=== PATIENT | female | born 1950 | race Caucasian/White ===

== ENCOUNTER → 2016-06-28 | Outpatient (CLI) | payer OTHER ==
[2016-06-28 13:40] VITALS: BP 138/90; PULSE 59; RESP 16; TEMP 97.5; BMI 35.6
--- NOTE | 2016-06-28 17:00 | P.HPBAR ---
Bariatric H&P - History & Physicial H&P Date: 06/28/16 History & Physicial: Visit/CC: Follow-Up EGD Patient initial contact: Initial weight: 104.326 kg Initial weight in pounds: 230.00 Height: 4 ft 11 in Initial BMI: 46.4 Last weight: Current weight: 80.059 kg Current weight in pounds: 176.00 Current BMI: 35.6 [place] body weight (based on NIH guidelines): 43.091 kg Excess body weight loss: 39.9% The patient is a 66 year-old F who presents for Bariatric Assessment. The patient ate a care yesterday. She has some feelings of dysphagia. 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, carpal tunnel release rt, eye surgery as a result of brain tumor Past Anesthesia/Blood Transfusion Reactions: No Reported Reaction, Motion Sickness Past Psychological History: Depression Additional Psychological History / Comment(s): takes cymbalta Smoking Status: Never smoker Past Alcohol Use History: Rare Past Drug Use History: None Reported - Past Family History Brother(s) Family Medical History: Diabetes Mellitus, Hypertension Father Family Medical History: AICD/Pacemaker Additional Family Medical History / Comment(s): from kidney cancer Mother Family Medical History: Hyperlipidemia, Hypertension Additional Family Medical History / Comment(s): macular degeneration, severe arthritis, hammer toe (severe feet issues), dimentia Surgical - Exam Vital Signs Temp Pulse Resp BP 97.5 F L 59 L 16 138/90 06/28/16 13:33 06/28/16 13:33 06/28/16 13:33 06/28/16 13:33 - General well developed, no distress - Eyes PERRL - ENT normal pinna - Neck no masses - Respiratory normal expansion - Cardiovascular Rhythm: regular - Abdomen Abdomen: soft, non tender Bariatric Assessment & Plan Plan: The patient had her Pete adjusted. 5 mL remove her LAP-BAND. She currently has 2.5 mL the band. She is able to water without difficulty. Bariatric Checklist Checklist: Plan: Checklist: EGD: 1. Hiatal hernia: 2. H. Pylori: HgbA1c: Vitamin D: Smoking: Never smoker Primary care physician referral: [place]que [place]) Psychiatry clearance: Cardiology clearance: Sleep study: Diet journal: VTE risk score: VTE risk level: Rehab needs at discharge:
== END | disposition home or self-care (01) ==
LOC: BARWHC3 12:52
PROVIDERS: ATTEND Surgery
DX: Z48.815 Encounter for surgical aftercare following surgery on the digestive system (principal); Z98.84 Bariatric surgery status; Z68.35 Body mass index [BMI] 35.0-35.9, adult; R13.10 Dysphagia, unspecified
CPT/HCPCS: 99211

== ENCOUNTER → 2016-08-16 | Outpatient (CLI) | payer OTHER ==
[2016-08-16 13:56] VITALS: BP 119/64; PULSE 65; RESP 14; TEMP 97.5; BMI 35.2
--- NOTE | 2016-08-16 14:14 | P.HPBAR ---
Bariatric H&P - History & Physicial H&P Date: 08/16/16 History & Physicial: Visit/CC: band fill Patient initial contact: Initial weight: 104.326 kg Initial weight in pounds: 230.00 Height: 4 ft 11 in Initial BMI: 46.4 Last weight: Current weight: 79.152 kg Current weight in pounds: 174.50 Current BMI: 35.2 [place] body weight (based on NIH guidelines): 43.091 kg Excess body weight loss: 41.1% The patient is a 66 year-old F who presents for Bariatric Assessment. Patient presents today for lab band follow up. She currently is hungry. She has gained some weight since her last visit. 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, carpal tunnel release rt, eye surgery as a result of brain tumor Past Anesthesia/Blood Transfusion Reactions: No Reported Reaction, Motion Sickness Past Psychological History: Depression Additional Psychological History / Comment(s): takes cymbalta Smoking Status: Never smoker Past Alcohol Use History: Rare Past Drug Use History: None Reported - Past Family History Brother(s) Family Medical History: Diabetes Mellitus, Hypertension Father Family Medical History: AICD/Pacemaker Additional Family Medical History / Comment(s): from kidney cancer Mother Family Medical History: Hyperlipidemia, Hypertension Additional Family Medical History / Comment(s): macular degeneration, severe arthritis, hammer toe (severe feet issues), dimentia Surgical - Exam Vital Signs Temp Pulse Resp BP 97.5 F L 65 14 119/64 08/16/16 13:49 08/16/16 13:49 08/16/16 13:49 08/16/16 13:49 - Abdomen Abdomen: soft, non tender Bariatric Assessment & Plan Plan: 2 mL was added to the patient LAP-BAND. She currently has 4.5 mL in the band. She was able to drink water without difficulty. She'll follow-up in one month Bariatric Checklist Checklist: Plan: Checklist: EGD: 1. Hiatal hernia: 2. H. Pylori: HgbA1c: Vitamin D: Smoking: Never smoker Primary care physician referral: [place]) Psychiatry clearance: Cardiology clearance: Sleep study: Diet journal: VTE risk score: VTE risk level: Rehab needs at discharge:
== END | disposition home or self-care (01) ==
LOC: BARWHC3 12:55
PROVIDERS: ATTEND Surgery
DX: Z48.815 Encounter for surgical aftercare following surgery on the digestive system (principal); Z98.84 Bariatric surgery status; Z68.35 Body mass index [BMI] 35.0-35.9, adult
CPT/HCPCS: 99212

== ENCOUNTER → 2017-03-07 | Outpatient (CLI) | payer OTHER ==
[2017-03-07 13:08] VITALS: BP 127/81; PULSE 82; TEMP 97.1; BMI 37.5
--- NOTE | 2017-03-07 14:00 | P.HPBAR ---
Bariatric H&P - History & Physicial H&P Date: 03/07/17 History & Physicial: Visit/CC: lap band fill Patient initial contact: Initial weight: 104.326 kg Initial weight in pounds: 230.00 Height: 4 ft 11 in Initial BMI: 46.4 Last weight: Current weight: 84.232 kg Current weight in pounds: 185.70 Current BMI: 37.5 [place] body weight (based on NIH guidelines): 43.091 kg Excess body weight loss: 32.8% The patient is a 67 year-old F who presents for Bariatric Assessment. Patient presents today for lab band follow up. She currently feels hungry. She is actually gained 10 pounds her last visit. 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, carpal tunnel release rt, eye surgery as a result of brain tumor Past Anesthesia/Blood Transfusion Reactions: No Reported Reaction, Motion Sickness Past Psychological History: Depression Additional Psychological History / Comment(s): takes cymbalta Smoking Status: Never smoker Past Alcohol Use History: Rare Past Drug Use History: None Reported - Past Family History Brother(s) Family Medical History: Diabetes Mellitus, Hypertension Father Family Medical History: AICD/Pacemaker Additional Family Medical History / Comment(s): from kidney cancer Mother Family Medical History: Hyperlipidemia, Hypertension Additional Family Medical History / Comment(s): macular degeneration, severe arthritis, hammer toe (severe feet issues), dimentia Surgical - Exam Vital Signs Temp Pulse BP 97.1 F L 82 127/81 03/07/17 13:05 03/07/17 13:05 03/07/17 13:05 - General well developed, no distress - Eyes PERRL - Abdomen Abdomen: soft, non tender Bariatric Assessment & Plan Plan: Patient LAP-BAND was adjusted. She had 2 mL added to her band. She was able require without difficulty. She'll follow-up in one month. Bariatric Checklist Checklist: Plan: Checklist: EGD: 1. Hiatal hernia: 2. H. Pylori: HgbA1c: Vitamin D: Smoking: Never smoker Primary care physician referral: [place]) Psychiatry clearance: Cardiology clearance: Sleep study: Diet journal: VTE risk score: VTE risk level: Rehab needs at discharge:
== END | disposition home or self-care (01) ==
LOC: BARWHC3 12:53
PROVIDERS: ATTEND Surgery
DX: Z48.815 Encounter for surgical aftercare following surgery on the digestive system (principal); E66.01 Morbid (severe) obesity due to excess calories; Z98.84 Bariatric surgery status
CPT/HCPCS: 97802; 99212

== ENCOUNTER → 2017-08-08 | Outpatient (CLI) | payer MEDICARE, OTHER ==
[2017-08-08 14:09] VITALS: BP 136/70; PULSE 72; TEMP 98.7; BMI 35.6
--- NOTE | 2017-08-09 11:42 | P.HPBAR ---
Bariatric H&P - History & Physicial H&P Date: 08/08/17 History & Physicial: Visit/CC: lap band fill Patient initial contact: Initial weight: 104.326 kg Initial weight in pounds: 230.00 Height: 4 ft 11 in Initial BMI: 46.4 Last weight: Current weight: 80.014 kg Current weight in pounds: 176.40 Current BMI: 35.6 [place] body weight (based on NIH guidelines): 43.091 kg Excess body weight loss: 39.7% The patient is a 67 year-old F who presents for Bariatric Assessment. Patient presents today for lab band follow up. She currently is hungry and wishes a fill of her band. 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, carpal tunnel release rt, eye surgery as a result of brain tumor Past Anesthesia/Blood Transfusion Reactions: No Reported Reaction, Motion Sickness Smoking Status: Never smoker - Past Family History Brother(s) Family Medical History: Diabetes Mellitus, Hypertension Father Family Medical History: AICD/Pacemaker Additional Family Medical History / Comment(s): from kidney cancer Mother Family Medical History: Hyperlipidemia, Hypertension Additional Family Medical History / Comment(s): macular degeneration, severe arthritis, hammer toe (severe feet issues), dimentia Surgical - Exam Vital Signs Temp Pulse BP 98.7 F 72 136/70 08/08/17 14:05 08/08/17 14:05 08/08/17 14:05 - General well developed, no distress - Eyes PERRL - ENT normal pinna - Neck no masses - Respiratory normal expansion - Cardiovascular Rhythm: regular - Abdomen Abdomen: soft, non tender Bariatric Assessment & Plan Plan: The patient's lap band was adjusted. She had 0.5 mL added to her band. She currently is 7 mL in the band. She'll follow-up in one month. Bariatric Checklist Checklist: Plan: Checklist: EGD: 1. Hiatal hernia: 2. H. Pylori: HgbA1c: Vitamin D: Smoking: Never smoker Primary care physician referral: [place]) Psychiatry clearance: Cardiology clearance: Sleep study: Diet journal: VTE risk score: VTE risk level: Rehab needs at discharge:
== END | disposition home or self-care (01) ==
LOC: BARWHC3 13:21
PROVIDERS: ATTEND Surgery
DX: Z48.815 Encounter for surgical aftercare following surgery on the digestive system (principal)
CPT/HCPCS: 99212

== ENCOUNTER → 2019-03-26 | Outpatient (CLI) | payer MEDICARE, OTHER ==
[2019-03-26 13:22] VITALS: BP 146/75; PULSE 68; RESP 16; TEMP 98.7; BMI 35.8
--- NOTE | 2019-03-26 13:44 | P.HPBAR ---
Bariatric H&P - History & Physicial H&P Date: 03/26/19 History & Physicial: Visit/CC: band fill Patient initial contact: Initial weight: 104.326 kg Initial weight in pounds: 230.00 Height: 4 ft 11 in Initial BMI: 46.4 Last weight: Current weight: 80.428 kg Current weight in pounds: 177.31 Current BMI: 35.8 [place] body weight (based on NIH guidelines): 43.091 kg Excess body weight loss: 39.0% The patient is a 69 year-old F who presents for Bariatric Assessment. Patient presents today for LAP-BAND adjustment. She is currently feeling hungry. She is requesting a fill. Past Medical History Past Medical History: GERD/Reflux, Hypertension, Thyroid Disorder Additional Past Medical History / Comment(s): hiatal hernia, hypothyroid History of Any Multi-Drug Resistant Organisms: None Reported Past Surgical History: Bariatric Surgery, Hysterectomy, Tubal Ligation Additional Past Surgical History / Comment(s): lap band, 1984 brain tumor re moved, carpal tunnel release rt, eye surgery as a result of brain tumor Past Anesthesia/Blood Transfusion Reactions: No Reported Reaction, Motion Sickness Smoking Status: Never smoker - Past Family History Brother(s) Family Medical History: Diabetes Mellitus, Hypertension Father Family Medical History: AICD/Pacemaker Additional Family Medical History / Comment(s): from kidney cancer Mother Family Medical History: Hyperlipidemia, Hypertension Additional Family Medical History / Comment(s): macular degeneration, severe arthritis, hammer toe (severe feet issues), dimentia Surgical - Exam Vital Signs Temp Pulse Resp BP 98.7 F 68 16 146/75 03/26/19 13:17 03/26/19 13:17 03/26/19 13:17 03/26/19 13:17 - General well developed, well nourished, no distress - Eyes PERRL - Abdomen Abdomen: soft, non tender Bariatric Assessment & Plan Plan: Patient's lap band was adjusted. She had 0.5 mL added to her band. She was able drink water without difficulty. She'll follow-up in 4 weeks. Bariatric Checklist Checklist: Plan: Checklist: EGD: 1. Hiatal hernia: 2. H. Pylori: HgbA1c: Vitamin D: Smoking: Never smoker Primary care physician referral: [place]) Psychiatry clearance: Cardiology clearance: Sleep study: Diet journal: VTE risk score: VTE risk level: Rehab needs at discharge:
== END ==
LOC: BARWHC3 12:45
PROVIDERS: ATTEND Surgery
DX: Z46.51 Encounter for fitting and adjustment of gastric lap band (principal); Z98.84 Bariatric surgery status
CPT/HCPCS: 99212

== ENCOUNTER → 2019-05-28 | Outpatient (CLI) | payer MEDICARE, OTHER ==
[2019-05-28 13:53] VITALS: BP 156/80; RESP 16; TEMP 98.3; BMI 35.7
--- NOTE | 2019-07-02 15:30 | P.HPBAR ---
Bariatric H&P - History & Physicial H&P Date: 05/28/19 History & Physicial: Visit/CC: band f/u Patient initial contact: Initial weight: 104.326 kg Initial weight in pounds: 230.00 Height: 4 ft 11 in Initial BMI: 46.4 Last weight: Current weight: 80.286 kg Current weight in pounds: 177.00 Current BMI: 35.7 [place] body weight (based on NIH guidelines): 43.091 kg Excess body weight loss: 39.2% The patient is a 69 year-old F who presents for Bariatric Assessment. Patient presents today for bariatric follow-up. She's had some mild GERD. She denies any dysphagia. 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, carpal tunnel release rt, eye surgery as a result of brain tumor Past Anesthesia/Blood Transfusion Reactions: No Reported Reaction, Motion Sickness Past Psychological History: Depression Additional Psychological History / Comment(s): takes cymbalta Smoking Status: Never smoker Past Alcohol Use History: Rare Past Drug Use History: None Reported - Past Family History Brother(s) Family Medical History: Diabetes Mellitus, Hypertension Father Family Medical History: AICD/Pacemaker Additional Family Medical History / Comment(s): from kidney cancer Mother Family Medical History: Hyperlipidemia, Hypertension Additional Family Medical History / Comment(s): macular degeneration, severe arthritis, hammer toe (severe feet issues), dimentia Surgical - Exam Vital Signs Temp Resp BP 98.3 F 16 156/80 05/28/19 13:13 05/28/19 13:13 05/28/19 13:13 - General well developed, well nourished, no distress - Abdomen Abdomen: soft, non tender Bariatric Assessment & Plan Plan: RBC, BMI 36. Patient appears minimal old observed. She'll follow-up in 4 weeks. Bariatric Checklist Checklist: Plan: Checklist: EGD: 1. Hiatal hernia: 2. H. Pylori: HgbA1c: Vitamin D: Smoking: Never smoker Primary care physician [place]: [place]) Psychiatry clearance: Cardiology clearance: Sleep study: Diet journal: VTE risk score: VTE risk level: Rehab needs at discharge:
== END | disposition home or self-care (01) ==
LOC: BARWHC3 12:58
PROVIDERS: ATTEND Surgery
DX: Z48.815 Encounter for surgical aftercare following surgery on the digestive system (principal); E66.01 Morbid (severe) obesity due to excess calories; K21.9 Gastro-esophageal reflux disease without esophagitis; Z68.35 Body mass index [BMI] 35.0-35.9, adult; Z98.84 Bariatric surgery status; Z90.710 Acquired absence of both cervix and uterus; Z98.890 Other specified postprocedural states
CPT/HCPCS: 97803; G0463; 99211

== ENCOUNTER → 2022-02-22 | Outpatient (CLI) | payer MEDICARE, OTHER ==
[2022-02-22 14:28] VITALS: BP 151/83; PULSE 74; TEMP 98.4; BMI 38.3
--- NOTE | 2022-02-22 14:45 | P.HPBAR ---
Bariatric H&P - History & Physicial H&P Date: 02/22/22 History & Physicial: Visit/CC: lap band f/u Patient initial contact: Initial weight: 104.326 kg Initial weight in pounds: 230.00 Height: 4 ft 11 in Initial BMI: 46.4 Last weight: Current weight: 86.183 kg Current weight in pounds: 190.00 Current BMI: 38.3 [place] body weight (based on NIH guidelines): 43.091 kg Excess body weight loss: 29.6% The patient is a 71 year-old F who presents for Bariatric Assessment. Patient presents today for LAP-BAND follow-up. She is requesting a fill her band. She currently hungry. Her current weight is 190 pounds. 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, carpal tunnel release rt, eye surgery as a result of brain tumor Past Anesthesia/Blood Transfusion Reactions: No Reported Reaction, Motion Sickness Past Psychological History: Depression Additional Psychological History / Comment(s): takes cymbalta Smoking Status: Former smoker Past Alcohol Use History: Rare Past Drug Use History: None Reported - Past Family History Brother(s) Family Medical History: Diabetes Mellitus, Hypertension Father Family Medical History: AICD/Pacemaker Additional Family Medical History / Comment(s): from kidney cancer Mother Family Medical History: Hyperlipidemia, Hypertension Additional Family Medical History / Comment(s): macular degeneration, severe arthritis, hammer toe (severe feet issues), dimentia Surgical - Exam Vital Signs Temp Pulse BP 98.4 F 74 151/83 02/22/22 14:18 02/22/22 14:18 02/22/22 14:18 - General well developed, well nourished, no distress - Eyes PERRL - ENT normal pinna - Neck no masses - Respiratory normal expansion - Cardiovascular Rhythm: regular - Abdomen Abdomen: soft, non tender Bariatric Assessment & Plan Plan: Patient's LAP-BAND was adjusted. She had 0.5 mL added to the band. She currently is 7.5 mL She'll follow-up in 4 weeks. Bariatric Checklist Checklist: Plan: Checklist: EGD: 1. Hiatal hernia: 2. H. Pylori: HgbA1c: Vitamin D: Smoking: Never smoker Primary care physician [place]: [place]) Psychiatry clearance: Cardiology clearance: Sleep study: Diet journal: VTE risk score: VTE risk level: Rehab needs at discharge:
== END ==
LOC: BARWHC3 13:33
PROVIDERS: ATTEND Surgery
DX: Z46.51 Encounter for fitting and adjustment of gastric lap band (principal); I10 Essential (primary) hypertension; E03.9 Hypothyroidism, unspecified; F32.A Depression, unspecified; Z87.891 Personal history of nicotine dependence
CPT/HCPCS: 99212

== ENCOUNTER → 2022-04-26 | Outpatient (CLI) | payer MEDICARE, OTHER ==
[2022-04-26 13:44] VITALS: BP 139/82; PULSE 65; RESP 12; TEMP 97.9; BMI 36.9
--- NOTE | 2022-04-26 15:14 | P.HPBAR ---
Bariatric H&P - History & Physicial H&P Date: 04/26/22 History & Physicial: Visit/CC: adjustment Patient initial contact: Initial weight: 104.326 kg Initial weight in pounds: 230.00 Height: 4 ft 11 in Initial BMI: 46.4 Last weight: Current weight: 83.007 kg Current weight in pounds: 183.00 Current BMI: 36.9 [place] body weight (based on NIH guidelines): 43.091 kg Excess body weight loss: 34.8% The patient is a 72 year-old F who presents for Bariatric Assessment. Patient presents today for LAP-BAND follow-up. She is hungry requesting a fill of her band. 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, carpal tunnel release rt, eye surgery as a result of brain tumor Past Anesthesia/Blood Transfusion Reactions: No Reported Reaction, Motion Sickness Smoking Status: Former smoker - Past Family History Brother(s) Family Medical History: Diabetes Mellitus, Hypertension Father Family Medical History: AICD/Pacemaker Additional Family Medical History / Comment(s): from kidney cancer Mother Family Medical History: Hyperlipidemia, Hypertension Additional Family Medical History / Comment(s): macular degeneration, severe arthritis, hammer toe (severe feet issues), dimentia Surgical - Exam Vital Signs Temp Pulse Resp BP 97.9 F 65 12 139/82 04/26/22 13:38 04/26/22 13:38 04/26/22 13:38 04/26/22 13:38 - General well developed, well nourished, no distress - Eyes PERRL - Abdomen Abdomen: soft, non tender Bariatric Assessment & Plan Plan: Patient's LAP-BAND was adjusted. She had 0.5 mL added to the band. She currently is 8 mL the band. He was able require without difficulty. She'll fo llow-up in 4 weeks. Bariatric Checklist Checklist: Plan: Checklist: EGD: 1. Hiatal hernia: 2. H. Pylori: HgbA1c: Vitamin D: Smoking: Never smoker Primary care physician referral: Roque [place]) Psychiatry clearance: Cardiology clearance: Sleep study: Diet journal: VTE risk score: VTE risk level: Rehab needs at discharge:
== END ==
LOC: BARWHC3 13:01
PROVIDERS: ATTEND Surgery
DX: Z09 Encounter for follow-up examination after completed treatment for conditions other than malignant neoplasm (principal); E66.01 Morbid (severe) obesity due to excess calories; Z98.84 Bariatric surgery status; Z68.37 Body mass index [BMI] 37.0-37.9, adult; Z88.5 Allergy status to narcotic agent
CPT/HCPCS: 99212

== ENCOUNTER → 2022-05-31 | Outpatient (CLI) | payer MEDICARE, OTHER ==
[2022-05-31 13:21] VITALS: BP 161/78; PULSE 74; TEMP 98.4; BMI 35.3
--- NOTE | 2022-05-31 14:09 | P.HPBAR ---
Bariatric H&P - History & Physicial H&P Date: 05/31/22 History & Physicial: Visit/CC: lap band Patient initial contact: Initial weight: 104.326 kg Initial weight in pounds: 230.00 Height: 4 ft 11 in Initial BMI: 46.4 Last weight: Current weight: 79.379 kg Current weight in pounds: 175.00 Current BMI: 35.3 [place] body weight (based on NIH guidelines): 43.091 kg Excess body weight loss: 40.7% The patient is a 72 year-old F who presents for Bariatric Assessment. Patient presents today for bariatric follow-up. Patient states she feels that she is in good LAP-BAND zone. She's had some minimal GERD. Denies any dysphagia or or throwing up. 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, carpal tunnel release rt, eye surgery as a result of brain tumor Past Anesthesia/Blood Transfusion Reactions: No Reported Reaction, Motion Sickness Past Psychological History: Depression Additional Psychological History / Comment(s): takes cymbalta Smoking Status: Former smoker Past Alcohol Use History: Rare Past Drug Use History: None Reported - Past Family History Brother(s) Family Medical History: Diabetes Mellitus, Hypertension Father Family Medical History: AICD/Pacemaker Additional Family Medical History / Comment(s): from kidney cancer Mother Family Medical History: Hyperlipidemia, Hypertension Additional Family Medical History / Comment(s): macular degeneration, severe arthritis, hammer toe (severe feet issues), dimentia Surgical - Exam Vital Signs Temp Pulse BP 98.4 F 74 161/78 05/31/22 13:17 05/31/22 13:17 05/31/22 13:17 - General well developed, well nourished, no distress - Eyes PERRL - ENT normal pinna - Neck no masses - Respiratory normal expansion - Cardiovascular Rhythm: regular - Abdomen Abdomen: soft, non tender Bariatric Assessment & Plan Plan: Resolving morbid obesity. Patient has lost 8 pounds since her last visit. Her GERD is minimal and will be observed. She will follow-up in one month. Bariatric Checklist Checklist: Plan: Checklist: EGD: 1. Hiatal hernia: 2. H. Pylori: HgbA1c: Vitamin D: Smoking: Never smoker Primary care physician referral: [place]) Psychiatry clearance: Cardiology clearance: Sleep study: Diet journal: VTE risk score: VTE risk level: Rehab needs at discharge:
== END ==
LOC: BARWHC3 12:53
PROVIDERS: ATTEND Surgery
DX: Z48.815 Encounter for surgical aftercare following surgery on the digestive system (principal); Z98.84 Bariatric surgery status; E66.01 Morbid (severe) obesity due to excess calories; K21.9 Gastro-esophageal reflux disease without esophagitis; I10 Essential (primary) hypertension; Z87.891 Personal history of nicotine dependence; Z88.5 Allergy status to narcotic agent; Z68.35 Body mass index [BMI] 35.0-35.9, adult
CPT/HCPCS: 99211

== ENCOUNTER → 2022-06-28 | Outpatient (CLI) | payer MEDICARE, OTHER ==
[2022-06-28 13:58] VITALS: BP 145/85; PULSE 69; TEMP 98; BMI 35.1
== END ==
LOC: BARWHC3 13:12
PROVIDERS: ATTEND Surgery
DX: E66.01 Morbid (severe) obesity due to excess calories (principal); Z53.9 Procedure and treatment not carried out, unspecified reason
CPT/HCPCS: 99212

== ENCOUNTER → 2022-08-02 | Outpatient (CLI) | payer MEDICARE, OTHER ==
[2022-08-02 13:32] VITALS: BP 153/90; PULSE 69; TEMP 97.7; BMI 35.9
--- NOTE | 2022-08-31 12:31 | P.HPBAR ---
Bariatric H&P - History & Physicial H&P Date: 08/02/22 History & Physicial: Visit/CC: lap band Patient initial contact: Initial weight: 104.326 kg Initial weight in pounds: 230.00 Height: 4 ft 11 in Initial BMI: 46.4 Last weight: Current weight: 80.649 kg Current weight in pounds: 177.80 Current BMI: 35.9 [place] body weight (based on NIH guidelines): 43.091 kg Excess body weight loss: 38.6% The patient is a 72 year-old F who presents for Bariatric Assessment. Patient presents today for LAP-BAND follow-up. She requested fill her band. 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, carpal tunnel release rt, eye surgery as a result of brain tumor Past Anesthesia/Blood Transfusion Reactions: No Reported Reaction, Motion Sickness Past Psychological History: Depression Additional Psychological History / Comment(s): takes cymbalta Smoking Status: Former smoker Past Alcohol Use History: Rare Past Drug Use History: None Reported - Past Family History Brother(s) Family Medical History: Diabetes Mellitus, Hypertension Father Family Medical History: AICD/Pacemaker Additional Family Medical History / Comment(s): from kidney cancer Mother Family Medical History: Hyperlipidemia, Hypertension Additional Family Medical History / Comment(s): macular degeneration, severe arthritis, hammer toe (severe feet issues), dimentia Surgical - Exam Vital Signs Temp Pulse BP 97.7 F 69 153/90 08/02/22 13:28 08/02/22 13:28 08/02/22 13:28 - General well developed, well nourished, no distress - Eyes PERRL - ENT normal pinna - Neck no masses - Respiratory normal expansion - Cardiovascular Rhythm: regular - Abdomen Abdomen: soft, non tender Bariatric Assessment & Plan Plan: Patient LAP-BAND was just. She had 0.5 mL added to the band. She currently is 8 mL in the band. Bariatric Checklist Checklist: Plan: Checklist: EGD: 1. Hiatal hernia: 2. H. Pylori: HgbA1c: Vitamin D: Smoking: Never smoker [place] Psychiatry clearance: Cardiology clearance: Sleep study: Diet journal: VTE risk score: VTE risk level: Rehab needs at discharge:
== END ==
LOC: BARWHC3 13:02
PROVIDERS: ATTEND Surgery
DX: E66.01 Morbid (severe) obesity due to excess calories (principal); K21.9 Gastro-esophageal reflux disease without esophagitis; I10 Essential (primary) hypertension; E07.9 Disorder of thyroid, unspecified; Z68.35 Body mass index [BMI] 35.0-35.9, adult; Z88.5 Allergy status to narcotic agent
CPT/HCPCS: 99212

== ENCOUNTER → 2022-08-30 | Outpatient (CLI) | payer MEDICARE ==
[2022-08-30 13:49] VITALS: BP 149/85; PULSE 74; TEMP 97.6; BMI 34.7
--- NOTE | 2022-08-31 10:20 | P.HPBAR ---
Bariatric H&P - History & Physicial H&P Date: 08/30/22 History & Physicial: Visit/CC: lap band Patient initial contact: Initial weight: 104.326 kg Initial weight in pounds: 230.00 Height: 4 ft 11 in Initial BMI: 46.4 Last weight: Current weight: 78.018 kg Current weight in pounds: 172.00 Current BMI: 34.7 [place] body weight (based on NIH guidelines): 43.091 kg Excess body weight loss: 42.9% The patient is a 72 year-old F who presents for Bariatric Assessment. Patient resents today for LAP-BAND follow-up. She's had some very minimal GERD. She is an excellent weight loss. 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, carpal tunnel release rt, eye surgery as a result of brain tumor Past Anesthesia/Blood Transfusion Reactions: No Reported Reaction, Motion Sickness Past Psychological History: Depression Additional Psychological History / Comment(s): takes cymbalta Smoking Status: Former smoker Past Alcohol Use History: Rare Past Drug Use History: None Reported - Past Family History Brother(s) Family Medical History: Diabetes Mellitus, Hypertension Father Family Medical History: AICD/Pacemaker Additional Family Medical History / Comment(s): from kidney cancer Mother Family Medical History: Hyperlipidemia, Hypertension Additional Family Medical History / Comment(s): macular degeneration, severe arthritis, hammer toe (severe feet issues), dimentia Surgical - Exam Vital Signs Temp Pulse BP 97.6 F 74 149/85 08/30/22 13:45 08/30/22 13:45 08/30/22 13:45 - General well developed, well nourished, no distress - Eyes PERRL - ENT normal pinna - Neck no masses - Respiratory normal expansion - Cardiovascular Rhythm: regular - Abdomen Abdomen: soft, non tender Bariatric Assessment & Plan Plan: Resolving morbid obesity. Patient's GERD is minimal observed. She'll follow-up in 3 months. Bariatric Checklist Checklist: Plan: Checklist: EGD: 1. Hiatal hernia: 2. H. Pylori: HgbA1c: Vitamin D: Smoking: Never smoker Primary care physician referral: [place]) Psychiatry clearance: Cardiology clearance: Sleep study: Diet journal: VTE risk score: VTE risk level: Rehab needs at discharge:
== END ==
LOC: BARWHC3 13:32
PROVIDERS: ATTEND Surgery
DX: E66.01 Morbid (severe) obesity due to excess calories (principal); I10 Essential (primary) hypertension; K21.9 Gastro-esophageal reflux disease without esophagitis; E03.9 Hypothyroidism, unspecified; Z68.34 Body mass index [BMI] 34.0-34.9, adult; Z88.5 Allergy status to narcotic agent
CPT/HCPCS: 99211

== ENCOUNTER → 2022-10-18 | Outpatient (CLI) | payer MEDICARE ==
[2022-10-18 14:44] VITALS: BP 159/76; PULSE 67; TEMP 98.3; BMI 34.1
--- NOTE | 2022-11-16 11:32 | P.HPBAR ---
Bariatric H&P - History & Physicial H&P Date: 10/18/22 History & Physicial: Visit/CC: lap band adj Patient initial contact: Initial weight: 104.326 kg Initial weight in pounds: 230.00 Height: 4 ft 11 in Initial BMI: 46.4 Last weight: Current weight: 76.657 kg Current weight in pounds: 169.00 Current BMI: 34.1 [place] body weight (based on NIH guidelines): 43.091 kg Excess body weight loss: 45.1% The patient is a 72 year-old F who presents for Bariatric Assessment. Patient presents today for bariatric follow. She's requesting a fill of her band. She currently feels hungry. 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, carpal tunnel release rt, eye surgery as a result of brain tumor Past Anesthesia/Blood Transfusion Reactions: No Reported Reaction, Motion Sickness Past Psychological History: Depression Additional Psychological History / Comment(s): takes cymbalta Smoking Status: Former smoker Past Alcohol Use History: Rare Past Drug Use History: None Reported - Past Family History Brother(s) Family Medical History: Diabetes Mellitus, Hypertension Father Family Medical History: AICD/Pacemaker Additional Family Medical History / Comment(s): from kidney cancer Mother Family Medical History: Hyperlipidemia, Hypertension Additional Family Medical History / Comment(s): macular degeneration, severe arthritis, hammer toe (severe feet issues), dimentia Surgical - Exam Vital Signs Temp Pulse BP 98.3 F 67 159/76 10/18/22 14:39 10/18/22 14:39 10/18/22 14:39 - General well developed, well nourished, no distress - Eyes PERRL - ENT normal pinna - Neck no masses - Respiratory normal expansion - Cardiovascular Rhythm: regular - Abdomen Abdomen: soft, non tender Bariatric Assessment & Plan Plan: Patient's LAP-BAND was adjusted. She had 0.5 mL added to the band. She currently is 8.5 mL in the band. She was ill drink water without difficulty in the office today. Bariatric Checklist Checklist: Plan: Checklist: EGD: 1. Hiatal hernia: 2. H. Pylori: HgbA1c: Vitamin D: Smoking: Never smoker [place] Psychiatry clearance: Cardiology clearance: Sleep study: Diet journal: VTE risk score: VTE risk level: Rehab needs at discharge:
== END ==
LOC: BARWHC3 13:16
PROVIDERS: ATTEND Surgery
DX: E66.01 Morbid (severe) obesity due to excess calories (principal); Z68.42 Body mass index [BMI] 45.0-49.9, adult; Z46.51 Encounter for fitting and adjustment of gastric lap band; K21.9 Gastro-esophageal reflux disease without esophagitis; I10 Essential (primary) hypertension; E03.9 Hypothyroidism, unspecified; Z87.891 Personal history of nicotine dependence; Z88.5 Allergy status to narcotic agent; Z79.899 Other long term (current) drug therapy
CPT/HCPCS: 99212

== ENCOUNTER → 2022-12-20 | Outpatient (CLI) | payer MEDICARE ==
[2022-12-20 15:34] VITALS: BP 154/79; PULSE 72; RESP 16; TEMP 97.9; BMI 32.7
--- NOTE | 2023-01-07 09:47 | P.HPBAR ---
Bariatric H&P - History & Physicial H&P Date: 12/20/22 History & Physicial: Visit/CC: Band F/U Patient initial contact: Initial weight: 104.326 kg Initial weight in pounds: 230.00 Height: 4 ft 11 in Initial BMI: 46.4 Last weight: Current weight: 73.482 kg Current weight in pounds: 162.00 Current BMI: 32.7 [place] body weight (based on NIH guidelines): 43.091 kg Excess body weight loss: 50.3% The patient is a 72 year-old F who presents for Bariatric Assessment. Patient resents today for [place] fall. She's was some fluid removed from her band. 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, carpal tunnel release rt, eye surgery as a result of brain tumor Past Anesthesia/Blood Transfusion Reactions: No Reported Reaction, Motion Sickness Past Psychological History: Depression Additional Psychological History / Comment(s): takes cymbalta Smoking Status: Former smoker Past Alcohol Use History: Rare Past Drug Use History: None Reported - Past Family History Brother(s) Family Medical History: Diabetes Mellitus, Hypertension Father Family Medical History: AICD/Pacemaker Additional Family Medical History / Comment(s): from kidney cancer Mother Family Medical History: Hyperlipidemia, Hypertension Additional Family Medical History / Comment(s): macular degeneration, severe arthritis, hammer toe (severe feet issues), dimentia Surgical - Exam Vital Signs Temp Pulse Resp BP 97.9 F 72 16 154/79 12/20/22 15:30 12/20/22 15:30 12/20/22 15:30 12/20/22 15:30 - General well developed, well nourished, no distress - Eyes PERRL - ENT normal pinna, normal nares - Neck no masses - Respiratory normal expansion - Cardiovascular Rhythm: regular - Abdomen Abdomen: soft, non tender Bariatric Assessment & Plan Plan: The patient had 1 mL removed from her band. She currently has 7.5 mL the band. She'll follow-up in 4 weeks. Bariatric Checklist Checklist: Plan: Checklist: EGD: 1. Hiatal hernia: 2. H. Pylori: HgbA1c: Vitamin D: Smoking: Never smoker Primary care physician referral: [place]) Psychiatry clearance: Cardiology clearance: Sleep study: Diet journal: VTE risk score: VTE risk level: Rehab needs at discharge:
== END ==
LOC: BARWHC3 14:45
PROVIDERS: ATTEND Surgery
DX: E66.01 Morbid (severe) obesity due to excess calories (principal); K21.9 Gastro-esophageal reflux disease without esophagitis; I10 Essential (primary) hypertension; E07.9 Disorder of thyroid, unspecified; Z46.51 Encounter for fitting and adjustment of gastric lap band; Z68.32 Body mass index [BMI] 32.0-32.9, adult; Z88.5 Allergy status to narcotic agent; Z79.890 Hormone replacement therapy; Z98.84 Bariatric surgery status; Z79.899 Other long term (current) drug therapy; Z87.891 Personal history of nicotine dependence
CPT/HCPCS: 99212

== ENCOUNTER → 2023-02-07 | Outpatient (CLI) | payer MEDICARE ==
[2023-02-07 15:13] VITALS: BP 142/84; PULSE 82; TEMP 97.9; BMI 32.7
--- NOTE | 2023-03-16 09:35 | P.HPBAR ---
Bariatric H&P - History & Physicial H&P Date: 02/07/23 History & Physicial: Visit/CC: lap band Patient initial contact: Initial weight: 104.326 kg Initial weight in pounds: 230.00 Height: 4 ft 11 in Initial BMI: 46.4 Last weight: Current weight: 73.527 kg Current weight in pounds: 162.10 Current BMI: 32.7 [place] body weight (based on NIH guidelines): 43.091 kg Excess body weight loss: 50.2% The patient is a 73 year-old F who presents for Bariatric Assessment. Patient resents today for bariatric follow. She's requesting a fill of her LAP-BAND. She is currently hungry. 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, carpal tunnel release rt, eye surgery as a result of brain tumor Past Anesthesia/Blood Transfusion Reactions: No Reported Reaction, Motion Sickness Smoking Status: Former smoker - Past Family History Brother(s) Family Medical History: Diabetes Mellitus, Hypertension Father Family Medical History: AICD/Pacemaker Additional Family Medical History / Comment(s): from kidney cancer Mother Family Medical History: Hyperlipidemia, Hypertension Additional Family Medical History / Comment(s): macular degeneration, severe arthritis, hammer toe (severe feet issues), dimentia Surgical - Exam Vital Signs Temp Pulse BP 97.9 F 82 142/84 02/07/23 15:11 02/07/23 15:11 02/07/23 15:11 - General well developed, well nourished, no distress - Eyes PERRL - ENT normal pinna - Neck no masses - Respiratory normal expansion - Cardiovascular Rhythm: regular - Abdomen Abdomen: soft, non tender Bariatric Assessment & Plan Plan: Patient's LAP-BAND was adjusted. She'll 0.5 mL added to the band. She currently is 8 mL . She'll follow-up in 4 weeks. Bariatric Checklist Checklist: Plan: Checklist: EGD: 1. Hiatal hernia: 2. H. Pylori: HgbA1c: Vitamin D: Smoking: Never smoker Primary care physician [place]) Psychiatry clearance: Cardiology clearance: Sleep study: Diet journal: VTE risk score: VTE risk level: Rehab needs at discharge:
== END ==
LOC: BARWHC3 15:03
PROVIDERS: ATTEND Surgery
DX: E66.01 Morbid (severe) obesity due to excess calories (principal); K21.9 Gastro-esophageal reflux disease without esophagitis; I10 Essential (primary) hypertension; E03.9 Hypothyroidism, unspecified; Z46.51 Encounter for fitting and adjustment of gastric lap band; Z68.32 Body mass index [BMI] 32.0-32.9, adult; Z98.84 Bariatric surgery status; Z87.891 Personal history of nicotine dependence; Z88.5 Allergy status to narcotic agent; Z79.899 Other long term (current) drug therapy; Z79.890 Hormone replacement therapy
CPT/HCPCS: 99212

== ENCOUNTER → 2023-10-24 | Outpatient (CLI) | payer MEDICARE, OTHER ==
[2023-10-24 12:44] VITALS: BP 163/87; PULSE 68; RESP 14; TEMP 98.3; BMI 32.1
--- NOTE | 2023-10-24 17:28 | P.HPBAR ---
Bariatric H&P - History & Physicial H&P Date: 10/24/23 History & Physicial: Visit/CC: follow up with dr. delgado Patient initial contact: Initial weight: 104.326 kg Initial weight in pounds: 230.00 Height: 4 ft 11 in Initial BMI: 46.4 Last weight: Current weight: 72.121 kg Current weight in pounds: 159.00 Current BMI: 32.1 [place] body weight (based on NIH guidelines): 43.091 kg Excess body weight loss: 52.5% The patient is a 73 year-old F who presents for Bariatric Assessment.patient resents today for [place] fall. She's requesting have some fluid removed for band. She's had some complaints of GERD. 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, carpal tunnel release rt, eye surgery as a result of brain tumor Past Anesthesia/Blood Transfusion Reactions: No Reported Reaction, Motion Sickness Past Psychological History: Depression Additional Psychological History / Comment(s): takes cymbalta Smoking Status: Former smoker Past Alcohol Use History: Rare Past Drug Use History: None Reported - Past Family History Brother(s) Family Medical History: Diabetes Mellitus, Hypertension Father Family Medical History: AICD/Pacemaker Additional Family Medical History / Comment(s): from kidney cancer Mother Family Medical History: Hyperlipidemia, Hypertension Additional Family Medical History / Comment(s): macular degeneration, severe arthritis, hammer toe (severe feet issues), dimentia Surgical - Exam Vital Signs Temp Pulse Resp BP 98.3 F 68 14 163/87 10/24/23 12:26 10/24/23 12:26 10/24/23 12:26 10/24/23 12:26 - General well developed, well nourished, no distress - Eyes PERRL - ENT normal pinna - Neck no masses - Respiratory normal expansion - Cardiovascular Rhythm: regular - Abdomen Abdomen: soft, non tender Bariatric Assessment & Plan Plan: 0.5 mL removed from her LAP-BAND. She currently is 7.5 mL in the band. She'll follow-up in 4 weeks. Bariatric Checklist Checklist: Plan: Checklist: EGD: 1. Hiatal hernia: 2. H. Pylori: HgbA1c: Vitamin D: Smoking: Never smoker [place] care [place] Psychiatry clearance: Cardiology clearance: Sleep study: Diet journal: VTE risk score: VTE risk level: Rehab needs at discharge:
== END ==
LOC: BARWHC3 10:11
PROVIDERS: ATTEND Surgery
DX: K21.9 Gastro-esophageal reflux disease without esophagitis (principal); Z46.51 Encounter for fitting and adjustment of gastric lap band; Z98.84 Bariatric surgery status; Z88.5 Allergy status to narcotic agent
CPT/HCPCS: 99211

== ENCOUNTER → 2024-01-02 | Outpatient (CLI) | payer MEDICARE, OTHER ==
[2024-01-02 10:52] VITALS: BP 132/77; PULSE 59; RESP 16; TEMP 98.6; BMI 32.9
--- NOTE | 2024-01-02 15:57 | P.HPBAR ---
Bariatric H&P - History & Physicial H&P Date: 01/02/24 History & Physicial: Visit/CC: f/u lap band Patient initial contact: Initial weight: 104.326 kg Initial weight in pounds: 230.00 Height: 4 ft 11 in Initial BMI: 46.4 Last weight: Current weight: 73.992 kg Current weight in pounds: 163.13 Current BMI: 32.9 [place] body weight (based on NIH guidelines): 43.091 kg Excess body weight loss: 49.5% The patient is a 73 year-old F who presents for Bariatric Assessment. Patient presents today for Lap-Band adjustment. She is requesting a fill of her Lap- Band. She currently feels hungry. 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, carpal tunnel release rt, eye surgery as a result of brain tumor Past Anesthesia/Blood Transfusion Reactions: No Reported Reaction, Motion Sickness Past Psychological History: Depression Additional Psychological History / Comment(s): takes cymbalta Smoking Status: Former smoker Past Alcohol Use History: Rare Past Drug Use History: None Reported - Past Family History Brother(s) Family Medical History: Diabetes Mellitus, Hypertension Father Family Medical History: AICD/Pacemaker Additional Family Medical History / Comment(s): from kidney cancer Mother Family Medical History: Hyperlipidemia, Hypertension Additional Family Medical History / Comment(s): macular degeneration, severe arthritis, hammer toe (severe feet issues), dimentia Surgical - Exam Vital Signs Temp Pulse Resp BP Pulse Ox 98.6 F 59 L 16 132/77 98 01/02/24 10:41 01/02/24 10:41 01/02/24 10:41 01/02/24 10:41 01/02/24 10:41 - General Vital signs are stable. Abdomen is soft Bariatric Assessment & Plan Plan: Lap-Band was adjusted she had 0.3 cc added to the band. She currently is 8.1 cc in the band. She will follow-up in 4 weeks. Bariatric Checklist Checklist: Plan: Checklist: EGD: 1. Hiatal hernia: 2. H. Pylori: HgbA1c: Vitamin D: Smoking: Never smoker Primary care physician [place]: [place]) Psychiatry clearance: Cardiology clearance: Sleep study: Diet journal: VTE risk score: VTE risk level: Rehab needs at discharge:
== END ==
LOC: BARWHC3 10:34
PROVIDERS: ATTEND Surgery
DX: Z46.51 Encounter for fitting and adjustment of gastric lap band (principal); E66.01 Morbid (severe) obesity due to excess calories; Z98.84 Bariatric surgery status; Z87.891 Personal history of nicotine dependence; Z88.5 Allergy status to narcotic agent; Z68.32 Body mass index [BMI] 32.0-32.9, adult
CPT/HCPCS: 43999

== ENCOUNTER → 2024-03-12 | Outpatient (CLI) | payer MEDICARE, OTHER ==
[2024-03-12 10:34] VITALS: BP 137/87; PULSE 64; RESP 16; TEMP 97.5; BMI 33.2
== END ==
LOC: BARWHC3 10:08
PROVIDERS: ATTEND Surgery
DX: E66.01 Morbid (severe) obesity due to excess calories (principal); Z88.5 Allergy status to narcotic agent; Z68.33 Body mass index [BMI] 33.0-33.9, adult
CPT/HCPCS: 43999

== ENCOUNTER → 2024-04-09 | Outpatient (CLI) | payer MEDICARE, OTHER ==
[2024-04-09 10:27] VITALS: BP 150/81; PULSE 65; RESP 16; TEMP 97.8
--- NOTE | 2024-04-09 16:31 | P.HPBAR ---
Bariatric H&P - History & Physicial H&P Date: 04/09/24 History & Physicial: Visit/CC: f/u lap band Patient initial contact: Initial weight: 104.326 kg Initial weight in pounds: 230.00 Height: 4 ft 11 in Initial BMI: Last weight: Current weight: 73.113 kg Current weight in pounds: Current BMI: [place] body weight (based on NIH guidelines): Excess body weight loss: The patient is a 74 year-old F who presents for Bariatric Assessment. Patient presents today for bariatric follow-up. She has complaints of GERD. She wants some fluid removed from her band. 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, carpal tunnel release rt, eye surgery as a result of brain tumor Past Anesthesia/Blood Transfusion Reactions: No Reported Reaction, Motion Sickness Past Psychological History: Depression Additional Psychological History / Comment(s): takes cymbalta Smoking Status: Former smoker Past Alcohol Use History: Rare Past Drug Use History: None Reported - Past Family History Brother(s) Family Medical History: Diabetes Mellitus, Hypertension Father Family Medical History: AICD/Pacemaker Additional Family Medical History / Comment(s): from kidney cancer Mother Family Medical History: Hyperlipidemia, Hypertension Additional Family Medical History / Comment(s): macular degeneration, severe arthritis, hammer toe (severe feet issues), dimentia Surgical - Exam Vital Signs Temp Pulse Resp BP 97.8 F 65 16 150/81 04/09/24 10:19 04/09/24 10:19 04/09/24 10:19 04/09/24 10:19 - General well developed, no distress - Eyes PERRL - ENT normal pinna, normal nares - Respiratory normal expansion - Cardiovascular Rhythm: regular - Abdomen Abdomen: soft, non tender Bariatric Assessment & Plan Plan: Gerd. Patient's Lap-Band was loosened. 0.3 cc was removed. She will follow-up in 4 weeks. Bariatric Checklist Checklist: Plan: Checklist: EGD: 1. Hiatal hernia: 2. H. Pylori: HgbA1c: Vitamin D: Smoking: Never smoker Primary care physician referral: [place]) Psychiatry clearance: Cardiology clearance: Sleep study: Diet journal: VTE risk score: VTE risk level: Rehab needs at discharge:
== END ==
LOC: BARWHC3 10:17
PROVIDERS: ATTEND Surgery
CPT/HCPCS: 43999